=== PATIENT | male | born 1995 | race Caucasian/White ===

== ENCOUNTER 2016-12-08 19:27 | Emergency (ER) | payer MEDICAID ==
[~2016-12-08] VITALS: Ht 182.9 cm; Wt 100.0 kg
[2016-12-08] MEDS ORDERED: ACETAMINOPHEN WITH CODEINE 300/30MG TABLET PO ONE (22:30)
[2016-12-08] MEDS ORDERED: IBUPROFEN 800MG TABLET PO ONE (22:30)
[2016-12-08 23:34] VITALS: BP 154/86
== END 2016-12-08 23:34 | disposition home or self-care (01) ==
LOC: ER 21:55
DX: M25.531 Pain in right wrist (principal)
CPT/HCPCS: 29125; 73110; 99284

== ENCOUNTER 2017-10-02 22:08 | Emergency (ER) | payer SELFPAY ==
[~2017-10-02] VITALS: Ht 182.9 cm; Wt 100.0 kg
[2017-10-03] MEDS ORDERED: ACETAMINOPHEN 325MG TABLET PO ONE (01:30)
[2017-10-03 01:43] VITALS: BP 131/73
== END 2017-10-03 02:22 | disposition home or self-care (01) ==
LOC: ER 22:08
DX: J34.2 Deviated nasal septum (principal); W50.0XXA Accidental hit or strike by another person, initial encounter; Y93.67 Activity, basketball; Y92.89 Other specified places as the place of occurrence of the external cause; Y99.8 Other external cause status
CPT/HCPCS: 70160; 99284